=== PATIENT | female | born 1980 | race African-American/Black ===

== ENCOUNTER 2016-05-20 15:31 | Emergency (ER) | payer MEDICAID ==
[~2016-05-20] VITALS: Ht 175.3 cm; Wt 95.3 kg
[~2016-05-20 15:31] MED LIST: CIPROFLOXACIN500 M2 ORAL; CYCLOBENZAPRINE10 MG ORAL; GUAIFENESIN-CO118 M1 PO; IBUPROFEN800 MG ORAL; LORATADINE10 M2 PO; METRONIDAZOLE500 MG ORAL; NAPROXEN375 MG PO; NEXAFED30 MG ORAL; NORCO 5-325 TA1 EACH ORAL; NORCO 5-325 TA1 EACH PO; PREDNISONE20 M1 PO; PREDNISONE50 MG ORAL; SINGULAIR10 MG ORAL; ZYRTEC10 MG ORAL
[2016-05-20 16:04] VITALS: BP 117/74
[2016-05-20] MEDS ORDERED: PROMETHAZINE-D118 ML ORAL (16:16)
[2016-05-20] MEDS ORDERED: TYLENOL EXTRA500 MG ORAL (16:16)
[2016-05-20 16:20] VITALS: BP 117/74
--- NOTE | 2016-05-20 21:39 | Emergency Room Report ---
History of Present Illness General Chief Complaint: Upper Respiratory Illness Source: Patient Present Illness [facility] The patient is a 36-year-old female presenting with sore throat, productive cough, and subjective fevers which began one week prior. The patient states pain is sn 8/10 dull ache to the throat and does not radiate. Pain worse with swallowing. The patient denies any sick contacts or recent travel. The patient denies any other symptoms including nausea, vomiting, rash, neck pain or stiffness, headache, dizziness, myalgia Allergies: Coded Allergies: HONEY (Verified Allergy, Severe, Anaphylaxis, 03/22/12) Patient History Past Medical History: see triage record Pertinent Family History: none Last Menstrual Period: 05/12/16 Now: No Reviewed Nursing Documentation: PMH: Agreed, PSxH: Agreed Nursing Documentation-PMH Hx Hypertension: No Hx Pacemaker: No Hx Asthma: Yes Hx COPD: No Hx Diabetes: No Hx Cancer: No Hx Gastrointestinal Problems: No - C/sec in 2006 Hx Dialysis: No Hx Neurological Problems: No Hx Cerebrovascular Accident: No Hx Seizures: No Review of Systems All Other Systems: negative except mentioned in HPI Physical Exam Vital Signs Date Time Temp Pulse Resp B/P Pulse Ox O2 Delivery O2 Flow Rate FiO2 05/20/16 15:57 97.7 72 15 117/74 98 Room Air Sp02 EP Interpretation: reviewed, normal General Appearance: no apparent distress, alert, GCS 15, non-toxic Head: normocephalic, atraumatic Eyes: bilateral eye PERRL, bilateral eye normal inspection ENT: normal ENT inspection, hearing grossly normal, no angioedema, normal voice , TMs + canals normal, uvula midline, moist mucus membranes Neck: full range of motion, supple/symm/no masses Respiratory: chest non-tender, lungs clear, normal breath sounds, no wheezing, speaking full sentences Cardiovascular #1: regular rate, rhythm, no edema Musculoskeletal: back normal, gait/station normal, normal range of motion, non- tender Neurologic: alert, oriented x3, responsive, motor strength/tone normal, sensory intact, speech normal Psychiatric: judgement/insight normal, memory normal, mood/affect normal, no suicidal/homicidal ideation Reflexes: 3+ bicep (R), 3+ bicep (L), 3+ tricep (R), 3+ tricep (L), 3+ knee (R) , 3+ knee (L) Skin: normal color, no rash, warm/dry, well hydrated Lymphatic: no adenopathy Medical Decision Making PA Attestation Dr. Gaffney is my supervising physician. Patient management was discussed with my supervising physician Diagnostic Impression: Primary Impression: Pharyngitis, acute ER Course The patient is a 36-year-old female presenting with sore throat, productive cough, and subjective fevers Differential diagnosis include but not limited to pharyngitis, sinusitis, AOM, bronchitis, PNA Physical exam: Afebrile. No apparent distress HEENT: There is Oral pharyngeal erythema only. No tonsillar edema or exudate. No cervical lymphadenopathy Lungs clear to auscultation bilaterally Otherwise exam is unremarkable This is presumably viral upper respiratory infection. The patient be given a prescription for Tylenol and cough medications. ER precautions are given and the patient will followup with primary care. Last Vital Signs Date Time Temp Pulse Resp B/P Pulse Ox O2 Delivery O2 Flow Rate FiO2 05/20/16 16:20 97.7 75 15 117/74 98 Room Air Status: improved Disposition: HOME, SELF-CARE Condition: Improved Scripts Acetaminophen* (TYLENOL EXTRA STRENGTH*) 500 Mg Tablet 500 MG ORAL Q8H Y for Prn Headache/Temp > 101, #30 TAB 0 Refills Prov: KANDY KEY 05/20/16 D-Methorphan Hb/Prometh Hcl* (PROMETHAZINE-DM SYRUP*) 118 Ml Syrup 5 ML ORAL Q6H Y for For Cough, #118 ML 0 Refills Prov: KANDY KEY 05/20/16 Referrals: [facility],REFERRING (PCP) Departure Forms: Return to School Return to School On: May 23, 2016 School Release Restrictions: None Patient Instructions: Upper Respiratory Infection, Adult Additional Instructions: I discussed my findings with the patient. All questions and concerns have been answered. Treatment and medication compliance have been addressed. I advised the patient that they need to follow up with PMD in 3-5 days. Return to ED if pain remains or worsens, cough worsens or remains, you notice blood in your sputum, you notice wheezing, you experience a fever, or if needed for any reason. Patient verbalized understanding of discharge instructions. KANDY KEY May 20, 2016 21:39
== END 2016-05-20 16:20 | disposition home or self-care (01) ==
LOC: EMR 16:13
DX: J02.9 Acute pharyngitis, unspecified (principal); J45.909 Unspecified asthma, uncomplicated
CPT/HCPCS: 99284

== ENCOUNTER 2016-06-10 14:36 | Emergency (ER) | payer MEDICAID ==
[~2016-06-10] VITALS: Ht 175.3 cm; Wt 97.5 kg
[~2016-06-10 14:36] MED LIST changes: +PROMETHAZINE-D118 ML ORAL; +TYLENOL EXTRA500 MG ORAL
[2016-06-10 14:44] VITALS: BP 121/86
--- NOTE | 2016-06-10 15:50 | Emergency Room Report ---
History of Present Illness General Chief Complaint: Upper Respiratory Illness Source: Patient Present Illness HPI 36-year-old female presents to emergency Department complaining of unilateral nasal congestion, purulent rhinorrhea and tenderness x2 weeks. Patient states that she was seen for upper respiratory infection in May of her other symptoms have resolved except for moderate amounts of rhinorrhea particularly from the right nostril. Pt states right sided facial pressure has increased tremendously over the last three days, and now reports that darker colored rhinorrhea. Patient reports intermittent fevers and chills denies eye pain. Denies CP, Palpitations, LOC, AMS, dizziness, Changes in Vision, Sensation, paresthesias, or a sudden severe headache. Denies history of diabetes or immunocompromise Allergies: Coded Allergies: HONEY (Verified Allergy, Severe, Anaphylaxis, 03/22/12) Patient History Past Medical History: see triage record Past Surgical History: none Pertinent Family History: none Last Menstrual Period: 05/14/16 Now: No Immunizations: UTD Reviewed Nursing Documentation: PMH: Agreed, PSxH: Agreed Nursing Documentation-PMH Past Medical History: No History, Except For Hx Hypertension: No Hx Pacemaker: No Hx Asthma: Yes Hx COPD: No Hx Diabetes: No Hx Cancer: No Hx Gastrointestinal Problems: No - C/sec in 2006 Hx Dialysis: No Hx Neurological Problems: No Hx Cerebrovascular Accident: No Hx Seizures: No Review of Systems All Other Systems: negative except mentioned in HPI Physical Exam Vital Signs Date Time Temp Pulse Resp B/P Pulse Ox O2 Delivery O2 Flow Rate FiO2 06/10/16 14:38 98.1 83 16 121/86 96 Room Air Sp02 EP Interpretation: reviewed, normal General Appearance: no apparent distress, alert, GCS 15, non-toxic Head: normocephalic, atraumatic Eyes: bilateral eye PERRL, bilateral eye normal inspection ENT: hearing grossly normal, normal pharynx, no angioedema, normal voice, TMs + canals normal, uvula midline, moist mucus membranes, nasal congestion - clear /yellow mildly opaque d/c noted most prominently in the right nare, moderate maxillary and frontal sinus TTP. Neck: full range of motion, no meningismus, no bony tend, supple/symm/no masses Respiratory: chest non-tender, lungs clear, normal breath sounds, speaking full sentences Cardiovascular #1: regular rate, rhythm, no edema Musculoskeletal: back normal, gait/station normal, normal range of motion, non- tender Neurologic: alert, oriented x3, responsive, motor strength/tone normal, sensory intact, speech normal Psychiatric: judgement/insight normal, memory normal, mood/affect normal, no suicidal/homicidal ideation Skin: normal color, no rash, warm/dry, well hydrated Lymphatic: no adenopathy Medical Decision Making PA Attestation Dr. Aadms is my supervising Physician whom patient management has been discussed with. Diagnostic Impression: Primary Impression: Sinusitis, acute maxillary Qualified Codes: J01.01 - Acute recurrent maxillary sinusitis ER Course 36-year-old female presents to emergency Department complaining of unilateral nasal congestion, purulent rhinorrhea and tenderness x2 weeks. Patient states that she was seen for upper respiratory infection in May of her other symptoms have resolved except for moderate amounts of rhinorrhea particularly from the right nostril. Patient reports intermittent fevers and chills denies eye pain. Pt states right sided facial pressure has increased tremendously over the last three days, and now reports that darker colored rhinorrhea. denies decongestant use. Ddx considered but are not limited to URI, pneumonia, PE, strep pharyngitis, sinusitis, jeanette-orbital cellulitis Vital signs: Pt. is afebrile, the remaining VS are WNL H&PE are most consistent with sinusitis due to prolonged period of time with symptoms, and unilateral symptoms. pt. has had symptoms for greater than 10 days , with worsening of symptoms over the last 3 days. ORDERS: none required at this time, the diagnosis is clinical ED INTERVENTIONS: None required at this time. DISCHARGE: At this time pt. is stable for d/c to home. Will provide printed patient care instructions, and any necessary prescriptions. Care plan and follow up instructions have been discussed with the patient prior to discharge. Last Vital Signs Date Time Temp Pulse Resp B/P Pulse Ox O2 Delivery O2 Flow Rate FiO2 06/10/16 14:38 98.1 83 16 121/86 96 Room Air Disposition: HOME, SELF-CARE Condition: Stable Scripts Mometasone Furoate (NASONEX) 17 Gm Exira.pump 2 SPRAYS NASAL DAILY for 10 Days, #17 GM 0 Refills Prov: Valerie Duffy P.A. 06/10/16 Amoxicillin/Potassium Clav 875-125* (AUGMENTIN 875-125 TABLET*) 1 Each Tablet 1 TAB ORAL TWICE A DAY for 10 Days, #20 TAB Prov: Valerie Duffy 06/10/16 Referrals: [facility],REFERRING (PCP) Patient Instructions: Sinusitis, Adult, [id number] Additional Instructions: Take medications as directed. Follow up with PCP in 3-5 days Return sooner to ED if new symptoms occur, or current symptoms become worse. - Please note that this Emergency Department Report was dictated using [employer] scrum master technology software, occasionally this can lead to erroneous entry secondary to interpretation by the dictation equipment. Valerie Duffy Jun 10, 2016 15:50
[2016-06-10] MEDS ORDERED: AUGMENTIN 875-1 EAC1 ORAL (15:57)
[2016-06-10] MEDS ORDERED: NASONEX17 GM NASAL (15:57)
[2016-06-10 16:09] VITALS: BP 123/79
== END 2016-06-10 16:09 | disposition home or self-care (01) ==
LOC: EMR 15:39
DX: J01.01 Acute recurrent maxillary sinusitis (principal); J45.909 Unspecified asthma, uncomplicated; Z91.018 Allergy to other foods
CPT/HCPCS: 99284

== ENCOUNTER 2016-09-09 16:51 | Emergency (ER) | payer MEDICAID ==
[~2016-09-09] VITALS: Ht 175.3 cm; Wt 95.3 kg
[~2016-09-09 16:51] MED LIST changes: +AUGMENTIN 875-1 EAC1 ORAL; +NASONEX17 GM NASAL
[2016-09-09 17:18] VITALS: BP 117/72
[2016-09-09] MEDS ORDERED: ACETAMINOPHEN-1 EAC2 ORAL (17:27)
[2016-09-09] MEDS ORDERED: AUGMENTIN 875-1 EAC1 ORAL ×2 (17:27→17:41)
--- NOTE | 2016-09-09 17:27 | Emergency Room Report ---
History of Present Illness General Chief Complaint: Toothache Source: Patient Present Illness HPI 36 y/o female c/o tooth pain x 1 day. States she chipped her tooth while eating yesterday. States today she has increase pain of left upper molar with radiation to left ear. Worse with chewing and palpation. No relieving factors. States she will make f/u appt with dentist tomorrow. Denies any current n/v/f/c/ d, abd pain, back pain, neck pain, photophobia, phonophobia, CP, SOB or headache. Allergies: Coded Allergies: HONEY (Verified Allergy, Severe, Anaphylaxis, 03/22/12) Patient History Past Medical History: see triage record Past Surgical History: none Pertinent Family History: none Last Menstrual Period: 09/09/16 Now: No Reviewed Nursing Documentation: PMH: Agreed, PSxH: Agreed Nursing Documentation-PMH Past Medical History: No History, Except For Hx Hypertension: No Hx Pacemaker: No Hx Asthma: Yes Hx COPD: No Hx Diabetes: No Hx Cancer: No Hx Gastrointestinal Problems: No - C/sec in 2006 Hx Dialysis: No Hx Neurological Problems: No Hx Cerebrovascular Accident: No Hx Seizures: No Review of Systems All Other Systems: negative except mentioned in HPI Physical Exam Vital Signs Date Time Temp Pulse Resp B/P Pulse Ox O2 Delivery O2 Flow Rate FiO2 09/09/16 16:57 98.2 67 18 117/72 99 Room Air Sp02 EP Interpretation: reviewed, normal General Appearance: no apparent distress, alert, GCS 15, non-toxic Head: normocephalic, atraumatic Eyes: bilateral eye PERRL, bilateral eye normal inspection ENT: hearing grossly normal, normal pharynx, no angioedema, normal voice, TMs + canals normal, other - tooth fracture with visible dentin left upper molar Neck: full range of motion, supple/symm/no masses Respiratory: chest non-tender, lungs clear, normal breath sounds, speaking full sentences Cardiovascular #1: regular rate, rhythm, no edema Neurologic: alert, oriented x3, responsive, motor strength/tone normal, sensory intact, speech normal Psychiatric: judgement/insight normal, memory normal, mood/affect normal, no suicidal/homicidal ideation Skin: normal color, no rash, warm/dry, well hydrated Medical Decision Making PA Attestation Dr. Bardales is my supervising physician with whom patient management has been discussed with. Diagnostic Impression: Primary Impression: Tooth fracture Qualified Codes: S02.5XXB - Fracture of tooth (traumatic), initial encounter for open fracture ER Course Pt. presents to the ED c/o tooth pain Ddx considered but are not limited to tooth fracture, chipped tooth, dental caries, dental infection, tooth abscess, tooth avulsion Vital signs: are WNL, pt. is afebrile H&PE are most consistent with soliz type ii tooth fracture ORDERS: none required at this time, the diagnosis is clinical ED INTERVENTIONS: none required at this time. DISCHARGE: At this time pt. is stable for d/c to home. Will provide printed patient care instructions, and any necessary prescriptions. Care plan and follow up instructions have been discussed with the patient prior to discharge. Last Vital Signs Date Time Temp Pulse Resp B/P Pulse Ox O2 Delivery O2 Flow Rate FiO2 09/09/16 17:18 98.2 68 18 117/72 99 Room Air Status: improved Disposition: HOME, SELF-CARE Condition: Stable Scripts Amoxicillin/Potassium Clav 875-125* (AUGMENTIN 875-125 TABLET*) 1 Each Tablet 1 TAB ORAL TWICE A DAY, #14 TAB Prov: EDIE HOLLIDAY P.A. 09/09/16 Acetaminophen With Codeine (T#4) (TYLENOL #4 TAB*) Y Tab 1 TAB ORAL Q8H Y for For Pain, #12 TAB 0 Refills Prov: EDIE HOLLIDAY P.A. 09/09/16 Patient Instructions: Tooth Injuries Additional Instructions: Keep mouth clean and rinse mouth out before and after each meal. Patient to follow up with dentist. Advised to use dental cement on tooth and to follow up with dentist within 24h. Take medication as directed. Patient should come back sooner if they experience any red areas that get bigger, more swollen, have pus draining from wound, or if the site becomes more painful. EDIE HOLLIDAY Sep 09, 2016 17:27
== END 2016-09-09 17:45 | disposition home or self-care (01) ==
LOC: EMR 17:25
DX: S02.5XXB Fracture of tooth (traumatic), initial encounter for open fracture (principal); X58.XXXA Exposure to other specified factors, initial encounter; Y93.9 Activity, unspecified; Y92.9 Unspecified place or not applicable; Z91.018 Allergy to other foods; J45.909 Unspecified asthma, uncomplicated
CPT/HCPCS: 99284

== ENCOUNTER 2017-02-10 15:32 | Emergency (ER) | payer MEDICAID ==
[~2017-02-10] VITALS: Ht 175.3 cm; Wt 104.3 kg
[~2017-02-10 15:32] MED LIST changes: +ACETAMINOPHEN-1 EAC2 ORAL
[2017-02-10 15:38] VITALS: BP 117/54
--- NOTE | 2017-02-10 16:12 | Emergency Room Report ---
History of Present Illness General Chief Complaint: Shoulder Injury Source: Patient, Medical Record Present Illness HPI 37-year-old female presents to the emergency department complaining of pain, tenderness, erythema of the right shoulder at x3 days with progression down into the right upper arm. Patient denies fevers, chills, trauma, fall. Patient reports swelling. Patient denies open wounds or lesions. Denies weakness or changes to sensation. pt. reports that her shoulder and upper arm feel hot to the touch. Denies numbness tingling or loss of sensation or gross motor movements of the extremities, incontinence of bowel or bladder. Denies CP , Palpitations, LOC, AMS, dizziness, Changes in Vision, Sensation, paresthesias , or a sudden severe headache. Allergies: Coded Allergies: HONEY (Verified Allergy, Severe, Anaphylaxis, 03/22/12) Patient History Past Medical History: see triage record Past Surgical History: none Pertinent Family History: none Last Menstrual Period: 01/11/17 Now: No Immunizations: UTD Reviewed Nursing Documentation: PMH: Agreed, PSxH: Agreed Nursing Documentation-PMH Past Medical History: No History, Except For Hx Hypertension: No Hx Pacemaker: No Hx Asthma: Yes Hx COPD: No Hx Diabetes: No Hx Cancer: No Hx Gastrointestinal Problems: No - C/sec in 2006 Hx Dialysis: No Hx Neurological Problems: No Hx Cerebrovascular Accident: No Hx Seizures: No Review of Systems All Other Systems: negative except mentioned in HPI Physical Exam Vital Signs Date Time Temp Pulse Resp B/P (MAP) Pulse Ox O2 Delivery O2 Flow Rate FiO2 02/10/17 15:38 98.1 65 18 117/54 98 Room Air Sp02 EP Interpretation: reviewed, normal General Appearance: no apparent distress, alert, GCS 15, non-toxic Head: normocephalic, atraumatic Eyes: bilateral eye normal inspection, bilateral eye PERRL ENT: hearing grossly normal, normal voice Neck: full range of motion Respiratory: lungs clear, normal breath sounds, speaking full sentences Cardiovascular #1: regular rate, rhythm, no edema Cardiovascular #2: 2+ radial (R) Musculoskeletal: back normal, gait/station normal, normal range of motion, non- tender - no bony ttp, swelling - localized area of swelling and erythema on the posterior shoulder see skin section of PE for details. , other - Pls see Skin section, FROM with some pain when raising arm, not suspicious of Septic joint. Neurologic: alert, oriented x3, responsive, motor strength/tone normal, sensory intact, speech normal Skin: no rash, warm/dry, well hydrated, other - Erythema, swelling and increased temperature to palpation to the upper posterior shoulder that radiates across to the deltoid area, no vesicles, no blisters, not circumferential, small scabbed wound on the posterior shoulder area which may be the primary site of infection. Lymphatic: no adenopathy Medical Decision Making PA Attestation Dr. Gaffney is my supervising Physician whom patient management has been discussed with. Diagnostic Impression: Primary Impression: Cellulitis of shoulder ER Course 37-year-old female presents to the emergency department complaining of pain, tenderness, erythema of the right shoulder at x3 days with progression down into the right upper arm. Patient denies fevers, chills, trauma, fall. Patient reports swelling. Patient denies open wounds or lesions. Denies weakness or changes to sensation. pt. reports that her shoulder and upper arm feel hot to the touch. Denies numbness tingling or loss of sensation or gross motor movements of the extremities, incontinence of bowel or bladder. Denies CP , Palpitations, LOC, AMS, dizziness, Changes in Vision, Sensation, paresthesias , or a sudden severe headache. Ddx considered but are not limited to cellulitis, tendonitis, septic joint, fracture, d/L, gout --pt. denies recent injections, or insect bites. Vital signs: are WNL, pt. is afebrile H&PE are most consistent with cellulitis, and small scabbed wound on the posterior shoulder area which may be the primary site of infection. ORDERS: none required at this time, the diagnosis is clinical INTERVENTIONS: -Keflex -Bactrim -Motrin - D/w pt. will treat with oral abx and NSAID. given strict ED return precautions for worsening or new symptoms. otherwise pt. to follow up with pmd in 3-5 days. DISCHARGE: At this time pt. is stable for d/c to home. Will provide printed patient care instructions, and any necessary prescriptions. Care plan and follow up instructions have been discussed with the patient prior to discharge. Last Vital Signs Date Time Temp Pulse Resp B/P (MAP) Pulse Ox O2 Delivery O2 Flow Rate FiO2 02/10/17 15:38 98.1 65 18 117/54 98 Room Air Disposition: HOME, SELF-CARE Condition: Stable Scripts Ibuprofen* (MOTRIN*) 600 Mg Tablet 600 MG ORAL THREE TIMES A DAY, #20 TAB 0 Refills Prov: Valerie Duffy 02/10/17 Trimethoprim/Sulfamethoxazole 160/800* (BACTRIM DS TABLET*) 1 Each Tablet 1 TAB ORAL TWICE A DAY for 7 Days, #14 TAB Prov: Valerie Duffy 02/10/17 Cephalexin* (KEFLEX*) 500 Mg Capsule 500 MG ORAL EVERY 12 HOURS for 7 Days, #14 CAP 0 Refills Prov: Valerie Duffy 02/10/17 Mupirocin Calcium (Bactroban) 15 Gm Cream..g. 1 APPLIC TOPIC THREE TIMES A DAY, #15 GM Prov: Valerie Duffy 02/10/17 Departure Forms: Return to School Return to School On: Feb 11, 2017 School Release Restrictions: None Other School Release Restrictions: limited use of right arm x 1 week. Return to Full Activity: Feb 18, 2017 Patient Instructions: Cellulitis, Shoulder Pain Additional Instructions: Take medications as directed. Follow up with a Primary Care Provider in 3-5 days, even if your symptoms have resolved. --Please review list of primary care clinics, if you do not already have a primary care provider Return sooner to ED if new symptoms occur, or current symptoms become worse. - Please note that this Emergency Department Report was dictated using [employer] inspector technology software, occasionally this can lead to erroneous entry secondary to interpretation by the dictation equipment. Valerie Duffy Feb 10, 2017 16:12
[2017-02-10] MEDS ORDERED: BACTROBAN CR1 APPLIC TOPIC (16:13)
[2017-02-10] MEDS ORDERED: CEPHALEXIN500 MG ORAL (16:13)
[2017-02-10] MEDS ORDERED: BACTRIM DS TAB1 EAC1 ORAL (16:13)
[2017-02-10] MEDS ORDERED: IBUPROFEN600 MG ORAL (16:13)
[2017-02-10] MEDS ORDERED: Cephalexin 500mg cap ORAL ONE (16:15)
[2017-02-10] MEDS ORDERED: Bactrim DS (160mg/800mg) tab ORAL ONE (16:15)
[2017-02-10 16:20] VITALS: BP 117/54
== END 2017-02-10 16:21 | disposition home or self-care (01) ==
LOC: EMR 16:02
DX: L03.113 Cellulitis of right upper limb (principal); J45.909 Unspecified asthma, uncomplicated; Z91.018 Allergy to other foods
CPT/HCPCS: 99284

== ENCOUNTER 2017-03-15 18:11 | Emergency (ER) | payer MEDICAID ==
[~2017-03-15] VITALS: Ht 175.3 cm; Wt 108.9 kg
[~2017-03-15 18:11] MED LIST changes: +BACTRIM DS TAB1 EAC1 ORAL; +BACTROBAN CR1 APPLIC TOPIC; +CEPHALEXIN500 MG ORAL; +IBUPROFEN600 MG ORAL
[2017-03-15] MEDS ORDERED: Ipratropium 0.02% Inh Soln 2.5ml UD HHN ONE (18:30)
[2017-03-15] MEDS ORDERED: Albuterol ud Inhalation HHN ONE (18:30)
[2017-03-15 19:18] VITALS: BP 122/62
[2017-03-15] MEDS ORDERED: PROMETHAZINE-D118 ML ORAL (19:59)
[2017-03-15] MEDS ORDERED: PREDNISONE20 MG ORAL (19:59)
[2017-03-15 20:17] VITALS: BP 122/62
[2017-03-15] MEDS ORDERED: ROBAXIN-750750 MG PO (20:45)
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
== END 2017-03-15 20:18 | disposition home or self-care (01) ==
LOC: EMR 18:35
DX: J45.909 Unspecified asthma, uncomplicated (principal); S46.911A Strain of unspecified muscle, fascia and tendon at shoulder and upper arm level, right arm, initial encounter; X58.XXXA Exposure to other specified factors, initial encounter; Y92.9 Unspecified place or not applicable
CPT/HCPCS: 94640; 94664; 99284

== ENCOUNTER 2017-10-19 20:24 | Emergency (ER) | payer MEDICAID ==
[~2017-10-19] VITALS: Ht 175.3 cm; Wt 105.2 kg
[~2017-10-19 20:24] MED LIST changes: +PREDNISONE20 MG ORAL; +ROBAXIN-750750 MG PO
[2017-10-19 20:45] VITALS: BP 105/60
[2017-10-19] MEDS ORDERED: IBUPROFEN600 MG ORAL (20:55)
[2017-10-19] MEDS ORDERED: AUGMENTIN 875-1 EAC1 ORAL (20:55)
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
[2017-10-19 21:04] VITALS: BP 105/60
== END 2017-10-19 21:04 | disposition home or self-care (01) ==
LOC: EMR 21:00
DX: J02.9 Acute pharyngitis, unspecified (principal); J32.9 Chronic sinusitis, unspecified; J45.909 Unspecified asthma, uncomplicated; Z91.018 Allergy to other foods
CPT/HCPCS: 99284

== ENCOUNTER 2017-11-20 21:27 | Emergency (ER) | payer MEDICAID ==
[~2017-11-20] VITALS: Ht 172.7 cm; Wt 102.1 kg
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
[2017-11-20] MEDS ORDERED: IBUPROFEN600 MG ORAL (23:24)
[2017-11-20 23:40] VITALS: BP 130/80
--- NOTE | 2017-11-21 09:37 | Diagnostic Imaging Report ---
Indication: Pain, trauma Technique: 3 views of the right ankle Comparison: none Findings: No acute fractures. No dislocations. Joint spaces are preserved Impression: Negative
== END 2017-11-20 23:40 | disposition home or self-care (01) ==
LOC: EMR 22:02
DX: S93.401A Sprain of unspecified ligament of right ankle, initial encounter (principal); J45.909 Unspecified asthma, uncomplicated; Z91.018 Allergy to other foods; X58.XXXA Exposure to other specified factors, initial encounter; Y93.02 Activity, running; Y92.9 Unspecified place or not applicable
CPT/HCPCS: 99283

== ENCOUNTER 2018-03-21 09:28 | Emergency (ER) | payer MEDICAID, OTHER ==
[~2018-03-21] VITALS: Ht 175.3 cm; Wt 108.4 kg
[2018-03-21] MEDS ORDERED: NKM (09:36)
[2018-03-21] MEDS ORDERED: Isovue-300 100ml vial INJ PRN (11:45)
[2018-03-21] MEDS ORDERED: Ketorolac 30mg Inj IV ONE (12:00)
[2018-03-21 12:13] LABS: HEMOGLOBIN 13.2 G/DL (12.0-16.0); MEAN CORPUSCULAR VOLUME 93 FL (80-99); PLATELET COUNT 223 K/UL (150-450); RED CELL DISTRIBUTION WIDTH 11.3 % (11.6-14.8); WHITE BLOOD COUNT 5.1 K/UL (4.8-10.8)
[2018-03-21 12:37] LABS: ANION GAP 6 mmol/L (5-15); BLOOD UREA NITROGEN 7 mg/dL (7-18); CALCIUM 8.7 MG/DL (8.5-10.1); CARBON DIOXIDE 26 MMOL/L (21-32); CHLORIDE 106 MMOL/L (98-107); CREATININE 0.9 MG/DL (0.55-1.30); POTASSIUM 4.2 MMOL/L (3.5-5.1); SODIUM 138 MMOL/L (136-145)
[2018-03-21 12:41] LABS: ALANINE AMINOTRANSFERASE 17 U/L (12-78); ALBUMIN 3.2 G/DL (3.4-5.0); ALBUMIN/GLOBULIN RATIO 0.8 (1.0-2.7); ALKALINE PHOSPHATASE 51 U/L (46-116); ASPARTATE AMINO TRANSFERASE 13 U/L (15-37); BILIRUBIN,TOTAL 0.4 MG/DL (0.2-1.0)
[2018-03-21 13:06] VITALS: BP 136/77
--- NOTE | 2018-03-21 13:47 | Diagnostic Imaging Report ---
Indications: Left hip pain Findings: Two views of the left hip were obtained. There is a linear band of sclerotic bone across the subcapital region of the left femoral neck. The finding is probably indicative of an older nondisplaced fracture. Please correlate clinically with the timing of the injury. There is no displacement. There is generalized narrowing of both hip joints. IMPRESSION: Suspected late subacute to chronic subcapital femoral neck fracture on the left. Correlate clinically Moderate bilateral hip arthrosis
--- NOTE | 2018-03-21 14:08 | Diagnostic Imaging Report ---
Indication: Hip pain Technique: continuous helical imaging in the transaxial plane was performed from the iliac crests to the pubic symphysis with attention to the left hip. Coronal 2-D reformatted images were also generated. Study obtained in a Siem[employer] Sensation [address] total DLP: 720.59 mGycm CTD/vol: 23.38 mGy Comparison: None Findings: There is no evidence of an acute fracture or significant malalignment identified on this examination. There is evidence of arthrosis of both hips characterized by subchondral sclerosis and narrowing of the joint space and osteophyte formation. In addition there are some cystic foci demonstrated at the capsular insertion of the joint capsule within both hips. There is also some calcification associated with this. The etiology of this is not known but is presumably degenerative in nature or associated with an inflammatory arthropathy. Please correlate clinically. Few subchondral cysts also noted within the acetabulum bilaterally in association with the arthrosis. There is no joint effusion. There is no obvious bursitis or musculoskeletal abnormalities. Soft tissues about the left hip appear normal. No CT evidence for AVN. The visualized part of the lower lumbar spine shows vacuum disc phenomena, endplate osteophyte formation and hypertrophied facets. Small amount of free fluid is noted within the pelvis which may be physiologic. IMPRESSION: No acute fracture, AVN or other acute process. No evidence of old fractures as well as considered on the basis of recent plain film. Moderate osteoarthritis of both hips. Unusual calcifications at what appears to be joint capsular insertion points within both hips. Nature of this is not known. This may be associated with an underlying inflammatory arthritis. Correlate clinically. Degenerative disease involving the visualized part of the lower lumbar spine. The CT scanner at [facility] is accredited by the [employer] and the scans are performed using dose optimization techniques as appropriate to a performed exam including Automatic Exposure control.
[2018-03-21] MEDS ORDERED: Morphine Sulfate 4mg/ml Inj (IV/IM USE ONLY) IVP ONE (15:30)
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
[2018-03-21] MEDS ORDERED: ACETAMINOPHEN-1 EAC1 ORAL (16:38)
[2018-03-21] MEDS ORDERED: IBUPROFEN800 MG ORAL (16:38)
[2018-03-21 17:16] VITALS: BP 121/78
== END 2018-03-21 17:17 | disposition home or self-care (01) ==
LOC: EMR 10:21 → CANBEDREQ 17:05 → EMR 17:17
DX: S70.02XA Contusion of left hip, initial encounter (principal); W01.0XXA Fall on same level from slipping, tripping and stumbling without subsequent striking against object, initial encounter; Y92.9 Unspecified place or not applicable; Z91.018 Allergy to other foods; M16.0 Bilateral primary osteoarthritis of hip
CPT/HCPCS: 36415; 72170; 73502; 73700; 80053; 84703; 85007; 85025; 96374; 96375; 99284; J1885; J2270

== ENCOUNTER 2018-08-13 14:31 | Emergency (ER) | payer OTHER ==
[~2018-08-13] VITALS: Ht 175.3 cm; Wt 90.7 kg
[~2018-08-13 14:31] MED LIST changes: +ACETAMINOPHEN-1 EAC1 ORAL; +NKM
--- NOTE | 2018-08-13 14:54 | NUR ---
ED Nurse Note: Pt came into the ER s/p trippin hari an elevator step this morning at 0900. Pt is complaining of 6/10 right foot pain. Non radiating. Ful ROM noted. No redness, swelling noted. Pt able to weight bear on the affected foot. A + O x4. Ambulatory. Skin warm to touch.
--- NOTE | 2018-08-13 15:27 | NUR ---
ED Nurse Note: Xray at the bedside.
--- NOTE | 2018-08-13 16:02 | NUR ---
ED Nurse Note: Crutches given to pt.
--- NOTE | 2018-08-13 16:06 | Emergency Room Report ---
History of Present Illness General Chief Complaint: Lower Extremity Injury Source: Patient Present Illness HPI 38-year-old female presents to the emergency department complaining of localized 9 out of 10 in severity pain, swelling and tenderness to the right foot and ankle status post mechanical trip and fall getting off of an elevator. Patient describes that she did not fall completely to the ground she was able to catch herself before she did not hit her head and she did not lose consciousness. Patient denies midline neck or back pain. She reports she is able to bear weight however walking does exacerbate her symptoms. Patient reports some mild relief with rest otherwise no other aggravating or relieving factors at this time.Denies numbness tingling or loss of sensation or gross motor movements of the extremity Allergies: Coded Allergies: HONEY (Verified Allergy, Severe, Anaphylaxis, 03/22/12) Patient History Past Medical History: see triage record Past Surgical History: none Pertinent Family History: none Last Menstrual Period: 4-13 Now: No Reviewed Nursing Documentation: PMH: Agreed; PSxH: Agreed Nursing Documentation-PMH Hx Hypertension: No Hx Pacemaker: No Hx Asthma: Yes Hx COPD: No Hx Diabetes: No Hx Cancer: No Hx Gastrointestinal Problems: No - C/sec in 2006 Hx Dialysis: No Hx Neurological Problems: No Hx Cerebrovascular Accident: No Hx Seizures: No Review of Systems All Other Systems: negative except mentioned in HPI Physical Exam Vital Signs Date Time Temp Pulse Resp B/P (MAP) Pulse Ox O2 Delivery O2 Flow Rate FiO2 08/13/18 14:45 98.2 78 18 98 Room Air Sp02 EP Interpretation: reviewed, normal General Appearance: no apparent distress, alert, GCS 15, non-toxic Head: normocephalic, atraumatic Eyes: bilateral eye normal inspection, bilateral eye PERRL ENT: hearing grossly normal, normal voice Neck: full range of motion Respiratory: lungs clear, normal breath sounds, speaking full sentences Cardiovascular #1: regular rate, rhythm, normal capillary refill Cardiovascular #2: 2+ dorsalis pedis (R) Musculoskeletal: back normal, gait/station normal - compensatory favoring the right leg., normal range of motion, swelling - right lateral ankle and dorsolateral aspect of the right foot. , tender - lateral aspect of the right foot and ankle. Neurologic: alert, oriented x3, responsive, motor strength/tone normal, sensory intact, speech normal, grossly normal Psychiatric: judgement/insight normal Skin: normal color, no rash, warm/dry, well hydrated Medical Decision Making PA Attestation Dr. Gaffney is my supervising Physician whom patient management has been discussed with. Diagnostic Impression: Primary Impression: Ankle sprain Qualified Codes: S93.491A - Sprain of other ligament of right ankle, initial encounter Additional Impression: Right foot sprain Qualified Codes: S93.601A - Unspecified sprain of right foot, initial encounter ER Course 38-year-old female presents to the emergency department complaining of localized 9 out of 10 in severity pain, swelling and tenderness to the right foot and ankle status post mechanical trip and fall getting off of an elevator. Patient describes that she did not fall completely to the ground she was able to catch herself before she did not hit her head and she did not lose consciousness. Patient denies midline neck or back pain. She reports she is able to bear weight however walking does exacerbate her symptoms. Patient reports some mild relief with rest otherwise no other aggravating or relieving factors at this time.Denies numbness tingling or loss of sensation or gross motor movements of the extremity Ddx considered but are not limited to Fracture, dislocation, contusion, Sprain/ Strain/Spasm. Vital signs: are WNL, pt. is afebrile H&PE are most consistent with musculoskeletal injury will perform imaging to r/ o fractures/dislocations. ORDERS: - X-ray Right FOOT AND ANKLE 3 VIEWS EACH - negative for fx, Dislocation, or significant soft tissue injury, per preliminary read in ED, and signed by RJ Duffy, my supervising physician has reviewed, and agrees with my interpretation. ED INTERVENTIONS: - Tylenol PO - Mick wrap applied to the right foot/ankle by transport tech. Pt. remains neurovascularly intact. --Patient is provided with crutches and instructed on their use DISCHARGE: At this time pt. is stable for d/c to home. Will provide printed patient care instructions, and any necessary prescriptions. Care plan and follow up instructions have been discussed with the patient prior to discharge. Other X-Ray Diagnostic Results Other X-Ray Diagnostic Results #1: X-Ray ordered: Right FOOT # of Views/Limited Vs Complete: 3 View Indication: Pain EP Interpretation: Yes PA Xray: Interpretation reviewed, by supervising MD, and agrees with findings. Interpretation: no dislocation, no soft tissue swelling, no fractures Impression: No acute disease Electronically Signed by: Valerie Duffy PA-C Other X-Ray Diagnostic Results #2: X-Ray ordered: Right ANKLE # of Views/Limited Vs Complete: 3 View Indication: Pain EP Interpretation: Yes PA Xray: Interpretation reviewed, by supervising MD, and agrees with findings. Interpretation: no dislocation, no soft tissue swelling, no fractures Impression: No acute disease Electronically Signed by: Valerie Duffy PA-C Last Vital Signs Date Time Temp Pulse Resp B/P (MAP) Pulse Ox O2 Delivery O2 Flow Rate FiO2 08/13/18 15:50 98.2 08/13/18 14:45 78 18 98 Room Air Status: improved Disposition: HOME, SELF-CARE Condition: Stable Scripts Acetaminophen* (TYLENOL EXTRA STRENGTH*) 500 Mg Tablet 500 MG ORAL Q6H, #20 TAB 0 Refills Prov: Valerie Duffy 08/13/18 Referrals: [facility],REFERRING (PCP) Departure Forms: Return to School Return to School On: August 17, 2018 School Release Restrictions: No Sports or PE Other School Release Restrictions: no heavy lifting, limit need to carry items/equiptment allow crutches Return to Full Activity: August 22, 2018 Patient Instructions: Ankle Sprain, Foot Sprain Additional Instructions: Take medications as directed. Follow up with a Primary Care Provider in 3-5 days, even if your symptoms have resolved. --Please review list of primary care clinics, if you do not already have a primary care provider Return sooner to ED if new symptoms occur, or current symptoms become worse. - Please note that this Emergency Department Report was dictated using [employer] cutter technology software, occasionally this can lead to erroneous entry secondary to interpretation by the dictation equipment. Valerie Duffy August 13, 2018 16:06
--- NOTE | 2018-08-13 16:07 | Diagnostic Imaging Report ---
Indication: Pain status post fall Technique: 3 views of the right foot Comparison: None Findings: Bone mineralization within normal limits. There is no evidence of acute fracture. Lisfranc alignment of the foot is maintained. Joint spaces are maintained. No radiopaque foreign body identified. Impression: No acute fracture or dislocation.
--- NOTE | 2018-08-13 16:07 | Diagnostic Imaging Report ---
Indication: Pain status post injury Technique: 3 views of the right ankle Comparison: 11/20/2017 Findings: Bony mineralization within normal limits. There is no evidence of acute fracture. Ankle mortise is intact on these nonstress views. No joint effusion is appreciated. Imaged hindfoot unremarkable. No radiopaque foreign body. Impression: No acute fracture or dislocation.
[2018-08-13] MEDS ORDERED: TYLENOL EXTRA500 MG ORAL (16:08)
[2018-08-13 16:39] VITALS: BP 105/67
--- NOTE | 2018-08-13 16:39 | NUR ---
ER DISCHARGE NOTE: Patient is cleared to be discharged per ERMD, pt is aox4, on room air, with stable vital signs. pt was given dc and prescription instructions, pt was able to verbalize understanding, pt id band removed without complications. pt is able to ambulate with steady gait. pt took all belongings.
== END 2018-08-13 16:40 | disposition home or self-care (01) ==
LOC: EMR 15:44
DX: S93.491A Sprain of other ligament of right ankle, initial encounter (principal); S93.601A Unspecified sprain of right foot, initial encounter; W01.0XXA Fall on same level from slipping, tripping and stumbling without subsequent striking against object, initial encounter; Y92.9 Unspecified place or not applicable; Z91.018 Allergy to other foods
CPT/HCPCS: 99283

== ENCOUNTER 2018-11-03 18:40 | Emergency (ER) | payer OTHER ==
[~2018-11-03] VITALS: Ht 175.3 cm; Wt 82.6 kg
[2018-11-03 19:00] VITALS: BP 125/80
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
[2018-11-03] MEDS ORDERED: TYLENOL EXTRA500 MG ORAL (19:34)
[2018-11-03] MEDS ORDERED: ROBAXIN-750750 MG PO (19:34)
[2018-11-03] MEDS ORDERED: LIDODERM700 M1 TOPIC (19:34)
[2018-11-03 19:45] VITALS: BP 125/80
--- NOTE | 2018-11-03 19:45 | NUR ---
ER DISCHARGE NOTE: Patient is cleared to be discharged per ERMD, pt is aox4, on room air, with stable vital signs. pt was given dc and prescription instructions, pt was able to verbalize understanding, pt id band removed. pt is able to ambulate with steady gait. pt took all belongings.
== END 2018-11-03 19:45 | disposition home or self-care (01) ==
LOC: EMR 19:30
DX: M62.830 Muscle spasm of back (principal); S29.012A Strain of muscle and tendon of back wall of thorax, initial encounter; M54.5 Low back pain; J45.909 Unspecified asthma, uncomplicated; Z91.018 Allergy to other foods; V43.51XA Car driver injured in collision with sport utility vehicle in traffic accident, initial encounter; Y92.410 Unspecified street and highway as the place of occurrence of the external cause
CPT/HCPCS: 99283

== ENCOUNTER 2018-11-11 16:31 | Emergency (ER) | payer OTHER ==
[~2018-11-11] VITALS: Ht 175.3 cm; Wt 81.2 kg
[~2018-11-11 16:31] MED LIST changes: +LIDODERM700 M1 TOPIC
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
[2018-11-11 16:57] VITALS: BP 108/49
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
[2018-11-11] MEDS ORDERED: LIDODERM700 M1 TOPIC (18:15)
[2018-11-11] MEDS ORDERED: ROBAXIN-750750 MG PO (18:15)
[2018-11-11] MEDS ORDERED: IBUPROFEN600 MG ORAL (18:15)
--- NOTE | 2018-11-11 18:30 | NUR ---
ED Nurse Note: patient refused to take motrin prescription, patient reports that it gives her "gut problem" notified to José DE LA ROSA
[2018-11-11 18:34] VITALS: BP 108/49
--- NOTE | 2018-11-11 18:36 | NUR ---
ER DISCHARGE NOTE: Patient is cleared to be discharged per ASRA TROY, pt is aox4, on room air, with stable vital signs. pt was given dc and prescription instructions, pt was able to verbalize understanding, pt id band removed without complications. pt is able to ambulate with steady gait. pt took all belongings.
== END 2018-11-11 18:30 | disposition home or self-care (01) ==
LOC: EMR 17:15
DX: M54.5 Low back pain (principal); S46.812A Strain of other muscles, fascia and tendons at shoulder and upper arm level, left arm, initial encounter; M54.6 Pain in thoracic spine; M25.512 Pain in left shoulder; V43.52XA Car driver injured in collision with other type car in traffic accident, initial encounter; Y92.9 Unspecified place or not applicable; Z91.018 Allergy to other foods
CPT/HCPCS: 99282

== ENCOUNTER 2020-01-12 21:08 | Emergency (ER) | payer OTHER ==
[~2020-01-12] VITALS: Ht 175.3 cm; Wt 74.8 kg
[~2020-01-12 21:08] MED LIST changes: +ACETAMINOPHEN325 M1 ORAL; +NAPROXEN500 M2 ORAL
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
--- NOTE | 2020-01-12 21:20 | NUR ---
ED Nurse Note: ERMD at bedside
[2020-01-12] MEDS ORDERED: Methocarbamol 750mg tab ORAL ONE (21:30)
[2020-01-12] MEDS ORDERED: Ketorolac 30mg Inj IM ONE (21:30)
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
[2020-01-12] MEDS ORDERED: ROBAXIN-500MG ORAL (22:06)
[2020-01-12] MEDS ORDERED: TYLENOL EXTRA500 MG ORAL (22:06)
[2020-01-12] MEDS ORDERED: LIDODERM700 M1 TOPIC (22:06)
--- NOTE | 2020-01-12 22:15 | NUR ---
ED Nurse Note: Scan and Xray done.
[2020-01-12 22:30] VITALS: BP 114/68
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
[2020-01-12 23:40] VITALS: BP 114/68
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
== END 2020-01-12 23:40 | disposition home or self-care (01) ==
LOC: EMR 21:32
DX: S40.012A Contusion of left shoulder, initial encounter (principal); S16.1XXA Strain of muscle, fascia and tendon at neck level, initial encounter; S39.012A Strain of muscle, fascia and tendon of lower back, initial encounter; V43.52XA Car driver injured in collision with other type car in traffic accident, initial encounter; Y92.410 Unspecified street and highway as the place of occurrence of the external cause; Z91.018 Allergy to other foods; M19.90 Unspecified osteoarthritis, unspecified site
CPT/HCPCS: 72125; 72131; 73030; 96372; J1885; Z7502; 99284